=== PATIENT | male | born 1945 | race Two or more races ===

== ENCOUNTER 2022-09-12 15:47 | Emergency (ER) | payer MEDICARE ==
[~2022-09-12] VITALS: Ht 170.2 cm; Wt 82.8 kg
[~2022-09-12 15:47] MED LIST: ETOMIDATE 2MG/ML 10ML VIAL IV ONE; SUCCINYLCHOLINE CHLORIDE 200MG/10ML IV ONE
[2022-09-12] MEDS ORDERED: SODIUM CHLORIDE 0.9% 1,000 ML IV ONE (16:00)
[2022-09-12] MEDS ORDERED: ONDANSETRON HCL 4MG/2ML INJ ONE (16:06)
[2022-09-12] MEDS ORDERED: IOHEXOL-350 100 ML BOTTLE ONE (16:06)
[2022-09-12] MEDS ORDERED: LABETALOL 5MG/ML SYR 20 MG/4 ML SYRINGE IV ONE ×3 (17:00→17:30)
[2022-09-12] MEDS ORDERED: TENECTEPLASE 50MG/VIAL IV ONE (17:00)
[2022-09-12 17:06] LABS: BASOPHILS % 0.4 % (0.0-2.0); EOSINOPHILS % 1.7 % (0.0-5.0); HEMATOCRIT. 43.7 % (42.0-52.0); HEMOGLOBIN. 15.1 g/dL (14.0-18.0); LYMPHOCYTES % 47.3 % (20.0-50.0); MEAN CORPUSCULAR HEMOGLOBIN 32.1 pg (28.0-32.0); MEAN CORPUSCULAR VOLUME 92.6 fL (80.0-94.0); MEAN PLATELET VOLUME 9.3 fl (7.4-10.4); MONOCYTES % 4.5 % (2.0-8.0); NEUTROPHILS % 46.1 % (40.0-76.0); PLATELET 185 x1000/uL (130-400); RED BLOOD CELL COUNT 4.72 mill/uL (4.7-6.1); RED CELL DISTRIBUTION WIDTH 12.9 % (11.6-14.6)
[2022-09-12 17:07] LABS: CHLORIDE 107 mEq/L (98-107)
[2022-09-12] MEDS ORDERED: ONDANSETRON HCL 4MG/2ML INJ IV ONE ×2 (17:15)
[2022-09-12 17:18] LABS: ETHANOL BLOOD < 10 mg/dL
[2022-09-12] MEDS ORDERED: DIPHENHYDRAMINE 50MG/ML VIAL IV ONE (17:30)
[2022-09-12] MEDS ORDERED: METOCLOPRAMIDE HCL 10MG/2ML VIAL IV ONE (17:30)
[2022-09-12] MEDS ORDERED: HYDRALAZINE 20MG/ML VIAL IV ONE (17:45)
[2022-09-12] MEDS ORDERED: *TENECTEPLASE FOR AIS XX SCH (18:00)
[2022-09-12] MEDS ORDERED: NITROGLYCERIN 50MG PREMIX 250 ML IV ONE ×2 (18:15→20:00)
[2022-09-12 20:05] VITALS: BP 149/83
[2022-09-12 20:29] LABS: *AMPHETAMINES SCREEN URINE NEGATIVE (NEGATIVE); *BARBITURATES SCREEN URINE NEGATIVE (NEGATIVE); *BENZODIAZEPINES SCREEN URINE NEGATIVE (NEGATIVE); *COCAINE SCREEN URINE NEGATIVE (NEGATIVE); CANNABINOID URINE SCREEN NEGATIVE (NEGATIVE); METHADONE URINE SCREEN NEGATIVE (NEGATIVE); OPIATES URINE SCREEN NEGATIVE (NEGATIVE); PHENCYCLIDINE URINE SCREEN NEGATIVE (NEGATIVE)
== END 2022-09-12 19:50 | disposition short-term general hospital (02) ==
LOC: ER 15:47 → CANBEDREQ 19:00 → ER 19:50
DX: R41.82 Altered mental status, unspecified (principal); I63.9 Cerebral infarction, unspecified; I10 Essential (primary) hypertension; E78.00 Pure hypercholesterolemia, unspecified; Z20.822 Contact with and (suspected) exposure to COVID-19
CPT/HCPCS: 36415; 70450; 70496; 70498; 71045; 80053; 80305; 80320; 83690; 84484; 85025; 87426; 93005; 96361; 96374; 96375; 99291; C9803; J0330; J0360; J1200; J2405; J2765; J2997; J3490; J7030; Q9967; G0480